=== PATIENT | female | born 1980 | race Caucasian/White ===

== ENCOUNTER → 2016-09-06 | Outpatient (CLI) | payer OTHER ==
--- NOTE | 2016-09-06 09:00 | MRI ---
Procedure: MR BRAIN WITHOUT IV CONTRAST Exam Date: 09/06/2016 12:00 AM CDT Ordering Provider: PHYSICIAN UNKNOWN Clinical Indication: HX OF ANOXIC BRAIN INJURY Comparison: None Technique: Multiplanar, multisequence images of the brain were obtained without administration of intravenous gadolinium based contrast. Findings: No evidence of diffusion restriction to suggest acute infarct. Normal signal characteristics of the brain parenchyma on T2/FLAIR sequences. Mild global parenchymal volume loss is present. There is no extra-axial fluid collection. No acute or chronic intracranial hemorrhage is seen. No evidence of cerebellar tonsillar herniation. Sellar/suprasellar structures are intact. The cervicomedullary junction is within normal limits. Impression: 1. No acute intracranial abnormality. 2. Age advanced global parenchymal volume loss.. Electronically signed by: Paul Jennings MD 09/06/2016 8:59 AM CDT
== END | disposition home or self-care (01) ==
LOC: MRI 08:08
PROVIDERS: ATTEND Psychiatry & Neurology Neurology
DX: G93.1 Anoxic brain damage, not elsewhere classified (principal)

== ENCOUNTER 2017-02-24 18:51 | Emergency (ER) | payer OTHER ==
[2017-02-24 19:19] VITALS: TEMP 98.6
[2017-02-24] MEDS ORDERED: MORPHINE SULFATE INJ 10 MG/ML VIAL IM ONE (19:21)
[2017-02-24] MEDS ORDERED: ORPHENADRINE CITRATE 30 MG/ML AMP IM ONE (19:21)
--- NOTE | 2017-02-24 19:21 | ED.PDOC ---
History of Present Illness - General Chief Complaint: Upper Extremity Injury Stated Complaint: right arm pain Time Seen by Provider: 02/24/17 18:55 Source: patient Exam Limitations: no limitations - History of Present Illness Initial Comments: Arabella Marino 36 y/o female stated that she had been having intermittent sharp shooting pain on her right shoulder for the last 2 years denies history of trauma and she never had medical attention done on her right shoulder but mostly her left shoulder which she had been hurting in the past. Occurred: other - 2 years on and off Pain - Upper Extremity: moderate: Shoulder, right Method of Injury: unknown Improving Factors: rest Worsening Factors: movement Allergies/Adverse Reactions: Allergies Penicillin G Allergy (Verified 02/24/17 19:19) Sulfa Antibiotics Allergy (Verified 02/24/17 19:19) Home Medications: Ambulatory Orders Lisdexamfetamine Dimesylate [Vyvanse] 40 mg PO DAILY 01/18/16 Keimzvxxaylum-Yuro-Qwcdshhpls [Trezix 320.5-30-16 mg] 1 cap PO PRN 02/15/16 Alprazolam [Xanax] 1 mg PO TID 02/15/16 Bupropion HCl [Bupropion HCl Sr] 150 mg PO BID 02/15/16 Butorphanol Tartrate 10 mg EUGENIO Q8HR PRN 02/15/16 Divalproex Sodium ER [Depakote ER] 1,000 mg PO BEDTIME 02/15/16 Donepezil HCl [Aricept] 5 mg PO DAILY 02/15/16 Insulin Glargine [Lantus Solostar] 6 unit SC BEDTIME 02/15/16 Insulin Lispro [Humalog Kwikpen] 100 unit SC PRN 02/15/16 Lisinopril 2.5 mg PO DAILY 02/15/16 Sertraline HCl 150 mg PO DAILY 02/15/16 Suvorexant [Belsomra] 20 mg PO BEDTIME 02/15/16 Topiramate 100 mg PO BID 02/15/16 Trazodone HCl 200 mg PO BEDTIME 02/15/16 Review of Systems - Review of Systems Constitutional: States: no symptoms reported EENTM: States: no symptoms reported Respiratory: States: no symptoms reported Cardiology: States: no symptoms reported Gastrointestinal/Abdominal: States: no symptoms reported Musculoskeletal: States: see HPI Skin: States: no symptoms reported Neurological: States: other - history of anoxic brain damage Past Medical History (General) - Patient Medical History Hx Seizures: Yes Hx Stroke: Yes - 2010 Hx Dementia: No Hx Asthma: No Hx of COPD: No Hx Cardiac Disorders: No Hx Congestive Heart Failure: No Hx Pacemaker: No Hx Hypertension: No Hx Thyroid Disease: No Hx Diabetes: Yes Hx Gastroesophageal Reflux: No Hx Renal Disease: No Hx Cancer: No Hx of HIV: No Hx Hepatitis C: No Hx MRSA: No Surgical History: other - c-sections - Vaccination History Hx Tetanus, Diphtheria Vaccination: No Hx Influenza Vaccination: Yes Hx Pneumococcal Vaccination: No - Social History Hx Tobacco Use: No Hx Chewing Tobacco Use: No Hx Alcohol Use: No Hx Substance Use: No Hx Substance Use Treatment: No Hx Depression: No Hx Physical Abuse: No Hx Emotional Abuse: No Hx Suspected Abuse: No - Female History Hx Last Menstrual Period: 01/07/17 Patient : No Family Medical History - Family History Mother Family History: Unknown Hx Family Diabetes: Yes - multiple family members Physical Exam - Physical Exam General Appearance: Alert, Anxious, No apparent distress Eyes, Ears, Nose, Throat Exam: PERRL/EOMI, normal ENT inspection, pharynx normal Neck: non-tender, full range of motion, supple Cardiovascular/Respiratory: regular rate, rhythm, no M/R/G, normal peripheral pulses Abdominal Exam: non-tender, no organomegaly Back Exam: no CVA tenderness, no vertebral tenderness Elbow/Forearm Exam: bone tenderness - right shoulder, limited ROM - pain right shoulder, pain - rotator cuff area, soft tissue tenderness Hand Exam: normal inspection, no evidence of injury Neuro/Tendon: normal sensation, normal motor functions, responds to pain Mental Status: alert, oriented x 3 Skin Exam: normal color, warm/dry Progress - Progress Progress: 02/24/17 19:51 Last Vital Signs Temp 98.6 F 02/24/17 19:14 Pulse 115 H 02/24/17 19:14 Resp 18 02/24/17 19:14 BP 167/97 02/24/17 19:14 Pulse Ox 98 02/24/17 19:14 - EKG/XRAY/CT XRAY: right shoulder no acute abnormalities Departure - Departure Clinical Impression: Shoulder pain, right Qualifiers: Chronicity: chronic Qualified Code(s): M25.511 - Pain in right shoulder; G89.29 - Other chronic pain Time of Disposition: 20:17 Disposition: Discharge to Home or Self Care Departure Forms: ED Discharge - Pt. Copy, Patient Portal Self Enrollment Instructions: DI for Frozen Shoulder Referrals: TIFFANY TOMAS [Primary Care Provider] - 1-2 Weeks Home Medications: Ambulatory Orders Lisdexamfetamine Dimesylate [Vyvanse] 40 mg PO DAILY 01/18/16 Spfwmqypdkbqp-Pdep-Edvhsabexv [Trezix 320.5-30-16 mg] 1 cap PO PRN 02/15/16 Alprazolam [Xanax] 1 mg PO TID 02/15/16 Bupropion HCl [Bupropion HCl Sr] 150 mg PO BID 02/15/16 Butorphanol Tartrate 10 mg EUGENIO Q8HR PRN 02/15/16 Divalproex Sodium ER [Depakote ER] 1,000 mg PO BEDTIME 02/15/16 Donepezil HCl [Aricept] 5 mg PO DAILY 02/15/16 Insulin Glargine [Lantus Solostar] 6 unit SC BEDTIME 02/15/16 Insulin Lispro [Humalog Kwikpen] 100 unit SC PRN 02/15/16 Lisinopril 2.5 mg PO DAILY 02/15/16 Sertraline HCl 150 mg PO DAILY 02/15/16 Suvorexant [Belsomra] 20 mg PO BEDTIME 02/15/16 Topiramate 100 mg PO BID 02/15/16 Trazodone HCl 200 mg PO BEDTIME 02/15/16 Additional Instructions: Need to follow up with Dr. Sherry elder md for consult with her neurologist Dr. Rios
[2017-02-24] MEDS ORDERED: GABAPENTIN 300 MG CAP PO ONE ×2 (19:28→20:07)
--- NOTE | 2017-02-24 20:05 | RAD ---
EXAM DESCRIPTION: Shoulder,Right 2 or More Views CLINICAL HISTORY: pain COMPARISON: None FINDINGS: 2 views were submitted. No fracture or dislocation is identified. Bone marrow attenuation is unremarkable. No radiopaque foreign body is identified. IMPRESSION: No acute fracture or dislocation. Electronically signed by: Pj Cordero 02/24/2017 8:04 PM [facility]
[2017-02-24] MEDS ORDERED: HYDROCOD/APAP 7.5/325 (ER DISP) #3 TAB PO ONE (20:51)
[2017-02-24 21:06] VITALS: BP 149/89; O2SAT 99
== END 2017-02-24 21:07 | disposition home or self-care (01) ==
LOC: ER 18:51
DX: G89.29 Other chronic pain (principal); M25.511 Pain in right shoulder; E11.9 Type 2 diabetes mellitus without complications; Z86.73 Personal history of transient ischemic attack (TIA), and cerebral infarction without residual deficits; Z79.4 Long term (current) use of insulin; Z79.899 Other long term (current) drug therapy; Z88.0 Allergy status to penicillin; Z88.2 Allergy status to sulfonamides
CPT/HCPCS: 73030; J2270; J2360

== ENCOUNTER 2017-05-30 15:29 | Emergency (ER) | payer OTHER ==
[2017-05-30] MEDS ORDERED: INSULIN, REG.(HUMAN) 100 U/ML VIAL ONE ×2 (15:35→16:48)
[2017-05-30] MEDS ORDERED: NOREPINEPHRINE BITARTRATE 4 MG/4 ML VIAL IVPB ONE ×3 (15:37→17:56)
[2017-05-30] MEDS ORDERED: DEXTROSE 5% 250ML 250 ML ONE ×2 (15:38→17:56)
[2017-05-30] MEDS ORDERED: SODIUM BICARBONATE SYRINGE 50 MEQ/50 ML SYG IV ONE ×2 (16:10→16:50)
--- NOTE | 2017-05-30 16:23 | RAD ---
EXAM DESCRIPTION: Chest,1 View CLINICAL HISTORY: ET tube placement COMPARISON: 18 January 2016 TECHNIQUE: AP portable chest FINDINGS: An endotracheal tube is seen in place with the distal tip just above the carmen. The right chest is clear. Left basilar infiltrate is observed. The heart is within range of normal. Marked gaseous distention of the stomach is observed. Surgical clips are seen in the right upper quadrant. IMPRESSION: 1. An endotracheal tube is seen at the level of the carmen. It should be pulled back at least a centimeter. 2. Left basilar infiltrate is observed. 3. Marked gaseous distention of the stomach is observed. Electronically signed by: Marvin Delcid MD 05/30/2017 4:22 PM [facility]
[2017-05-30] MEDS ORDERED: levoFLOXacin 750MG IV 750 MG in PREMIX BAG 1 BAG IVPB ONE (16:27)
[2017-05-30] MEDS ORDERED: SODIUM CHL 0.9% 250ML (AVIVA) 250 ML IVPB ONE (16:48)
[2017-05-30] MEDS ORDERED: INSULIN, REG.(HUMAN) 250 UNITS in SODIUM CHL 0.9% 250ML (AVIVA) 247.5 ML IVPB SCH ×2 (17:00)
[2017-05-30] MEDS ORDERED: DOPamine PREMIX 250 ML IVPB ONE (17:10)
--- NOTE | 2017-05-30 17:36 | ED.PDOC ---
History of Present Illness - General Chief Complaint: Unresponsive Stated Complaint: unresponsive Time Seen by Provider: 05/30/17 15:53 Source: family, EMS Exam Limitations: clinical condition - History of Present Illness Initial Comments: Patient presents after being found unresponsive at home. A family member called EMS after the patient did not answer the phone and the family member checked on her. The last time the patient was seen at her baseline was yesterday evening. Patient has IDDM with a history of poor compliance and frequent presentations for hypoglycemia. EMS measured the blood sugar at 331. Our first FSBG here was >400. The mother called and said that the patient had not been using recreational drugs. No known recent infections. No other history is available. Timing/Duration: unsure Severity: severe Improving Factors: nothing Worsening Factors: nothing Associated Symptoms: other - unresponsive Allergies/Adverse Reactions: Allergies Penicillin G Allergy (Verified 05/30/17 16:19) Sulfa Antibiotics Allergy (Verified 05/30/17 16:19) Home Medications: Ambulatory Orders Lisdexamfetamine Dimesylate [Vyvanse] 40 mg PO DAILY 01/18/16 Yldcbrjuecqcf-Sewb-Zosxdoftjy [Trezix 320.5-30-16 mg] 1 cap PO PRN 02/15/16 Alprazolam [Xanax] 1 mg PO TID 02/15/16 Bupropion HCl [Bupropion HCl Sr] 150 mg PO BID 02/15/16 Butorphanol Tartrate 10 mg EUGENIO Q8HR PRN 02/15/16 Divalproex Sodium ER [Depakote ER] 1,000 mg PO BEDTIME 02/15/16 Donepezil HCl [Aricept] 5 mg PO DAILY 02/15/16 Insulin Glargine [Lantus Solostar] 6 unit SC BEDTIME 02/15/16 Insulin Lispro [Humalog Kwikpen] 100 unit SC PRN 02/15/16 Lisinopril 2.5 mg PO DAILY 02/15/16 Sertraline HCl 150 mg PO DAILY 02/15/16 Suvorexant [Belsomra] 20 mg PO BEDTIME 02/15/16 Topiramate 100 mg PO BID 02/15/16 Trazodone HCl 200 mg PO BEDTIME 02/15/16 Review of Systems - Review of Systems Unable to Obtain Due To: condition Past Medical History (General) - Patient Medical History Hx Seizures: Yes Hx Stroke: Yes - 2010 Hx Dementia: No Hx Asthma: No Hx of COPD: No Hx Cardiac Disorders: No Hx Congestive Heart Failure: No Hx Pacemaker: No Hx Hypertension: No Hx Thyroid Disease: No Hx Diabetes: Yes Hx Gastroesophageal Reflux: No Hx Renal Disease: No Hx Cancer: No Hx of HIV: No Hx Hepatitis C: No Hx MRSA: No - Vaccination History Hx Tetanus, Diphtheria Vaccination: No Hx Influenza Vaccination: Yes Hx Pneumococcal Vaccination: No - Social History Hx Tobacco Use: No Hx Chewing Tobacco Use: No Hx Alcohol Use: No Hx Substance Use: No Hx Substance Use Treatment: No Hx Depression: No Hx Physical Abuse: No Hx Emotional Abuse: No Hx Suspected Abuse: No - Female History Patient is a Female of Child Bearing Age (10 -59 yrs old): Yes Hx Last Menstrual Period: 01/07/17 Patient : No - Triage Comment ED Triage Comment: unknown lmp Family Medical History - Family History Mother Family History: Unknown Hx Family Diabetes: Yes - multiple family members Physical Exam - Physical Exam General Appearance: Other - unresponsive Eye Exam: bilateral other - pupils constricted and non-reactive Ears, Nose, Throat: normal ENT inspection Neck: other - no LAD Respiratory: lungs clear, normal breath sounds Cardiovascular/Chest: other - weak, thready brachial pulses, pulses barely palpable at the radius and dorsal pedis, lower extremities cool. Gastrointestinal/Abdominal: normal bowel sounds Neurologic: other - GCS 3. No pupillary response. Pupils constricted. No corneal reflex. No response to sternal rub. No voluntary movment. No posturing. No eye movement. No response to pain in the extremities. DTR: 0: Brachioradialis, left, Brachioradialis, right, Patellar, left, Patellar , right Skin Exam: normal color Progress - Progress Progress: 05/30/17 17:41 Patient received Narcan x two amps in the ambulance. Upon arrival at the E.D., patient was successfully intubated. EKG showed NSR with no ST changes nor T wave inversions. ABG showed pH 6.6. Patient received regular human insulin 10 units IV x one, and bolused warmed normal saline as the rectal temperature was 80 F. She received two amps of bicarbonate IV. Patient was put on the ventilator. Lactic acid 2.8. Blood glucose 1389. Potassium 5.3. Patient was started on insulin 10 units IV/hour. Levaphed was started at 5 mcg/kg/min and titrated up to 30 mcg with the best response being a systolic of 59. Dopamine was started at 20 mcg/kg/min and titration continued. wbc 30. Levaquin 750 mg IV x one given. Before transfer the patient started grabbing at the vent and had some leg movement. She was sedated with vecuronium for transfer. See nursing chart for times of medication administration and specific vitals. Patient transferred to [facility] Departure - Departure Clinical Impression: Unresponsiveness, Diabetic ketoacidosis with coma Disposition: Transfer to Hospital Condition: Poor Departure Forms: ED Discharge - Pt. Copy, Patient Portal Self Enrollment Diet: other - as per rampman Activity: other - as per rampman Referrals: TIFFANY TOMAS [Primary Care Provider] - 1-2 Weeks Home Medications: Ambulatory Orders Lisdexamfetamine Dimesylate [Vyvanse] 40 mg PO DAILY 01/18/16 Ctqigeihhrupy-Jtce-Pczevvgexr [Trezix 320.5-30-16 mg] 1 cap PO PRN 02/15/16 Alprazolam [Xanax] 1 mg PO TID 02/15/16 Bupropion HCl [Bupropion HCl Sr] 150 mg PO BID 02/15/16 Butorphanol Tartrate 10 mg EUGENIO Q8HR PRN 02/15/16 Divalproex Sodium ER [Depakote ER] 1,000 mg PO BEDTIME 02/15/16 Donepezil HCl [Aricept] 5 mg PO DAILY 02/15/16 Insulin Glargine [Lantus Solostar] 6 unit SC BEDTIME 02/15/16 Insulin Lispro [Humalog Kwikpen] 100 unit SC PRN 02/15/16 Lisinopril 2.5 mg PO DAILY 02/15/16 Sertraline HCl 150 mg PO DAILY 02/15/16 Suvorexant [Belsomra] 20 mg PO BEDTIME 02/15/16 Topiramate 100 mg PO BID 02/15/16 Trazodone HCl 200 mg PO BEDTIME 02/15/16
[2017-05-30 17:38] VITALS: TEMP 81.5
[2017-05-30] MEDS ORDERED: WATER FOR INJ 10 ML VIAL INJ ONE (17:46)
[2017-05-30] MEDS ORDERED: SODIUM CHLORIDE 0.9% 1000ML 2,000 ML ONE (18:05)
[2017-05-30 18:21] VITALS: BP 64/35; O2SAT 98
== END 2017-05-30 18:05 | disposition short-term general hospital (02) ==
LOC: ER 15:29
DX: E11.11 Type 2 diabetes mellitus with ketoacidosis with coma (principal); Z79.4 Long term (current) use of insulin; Z86.73 Personal history of transient ischemic attack (TIA), and cerebral infarction without residual deficits
CPT/HCPCS: 36415; 36600; 71045; 80053; 81001; 82009; 82550; 82803; 82805; 83605; 85025; 93005; 94002; A4216; J1265; J1956; J7030; J7060

== ENCOUNTER 2018-01-13 17:45 | Inpatient (IN) | payer OTHER ==
[2018-01-13] MEDS ORDERED: SODIUM CHLORIDE 0.9% 1000ML 1,000 ML IVS ONE ×2 (17:55→23:47)
--- NOTE | 2018-01-13 18:00 | ED.PDOC ---
History of Present Illness - General Chief Complaint: General Time Seen by Provider: 01/13/18 17:51 Source: family Exam Limitations: clinical condition - History of Present Illness Initial Comments: Per patient's twin sister, the patient has been "sleeping since " (four days) She has been running blood sugars of at least 400. The sister says that she has been giving the patient her insulin in its normal doses but it hasn't come down. The patient has not been very responsive to her family members. The sister says that the patient has done this before. No other information is available at this time. Timing/Duration: other - four days Severity: moderate Improving Factors: nothing Worsening Factors: nothing Associated Symptoms: other - unable to obtain information from the patient due to clinical condition Allergies/Adverse Reactions: Allergies Penicillin G Allergy (Verified 05/30/17 16:19) Sulfa Antibiotics Allergy (Verified 05/30/17 16:19) Home Medications: Ambulatory Orders Lisdexamfetamine Dimesylate [Vyvanse] 40 mg PO DAILY 01/18/16 Yxerpyjyznwvg-Rmmb-Iliycfyoty [Trezix 320.5-30-16 mg] 1 cap PO PRN 02/15/16 Alprazolam [Xanax] 1 mg PO TID 02/15/16 Bupropion HCl [Bupropion HCl Sr] 150 mg PO BID 02/15/16 Butorphanol Tartrate 10 mg EUGENIO Q8HR PRN 02/15/16 Divalproex Sodium ER [Depakote ER] 1,000 mg PO BEDTIME 02/15/16 Donepezil HCl [Aricept] 5 mg PO DAILY 02/15/16 Insulin Glargine [Lantus Solostar] 6 unit SC BEDTIME 02/15/16 Insulin Lispro [Humalog Kwikpen] 100 unit SC PRN 02/15/16 Lisinopril 2.5 mg PO DAILY 02/15/16 Sertraline HCl 150 mg PO DAILY 02/15/16 Suvorexant [Belsomra] 20 mg PO BEDTIME 02/15/16 Topiramate 100 mg PO BID 02/15/16 Trazodone HCl 200 mg PO BEDTIME 02/15/16 Review of Systems - Review of Systems Constitutional: States: other - as in HPI EENTM: States: no symptoms reported Respiratory: States: no symptoms reported Cardiology: States: no symptoms reported Gastrointestinal/Abdominal: States: nausea Genitourinary: States: no symptoms reported Musculoskeletal: States: no symptoms reported Skin: States: no symptoms reported Neurological: States: see HPI Endocrine: States: see HPI Hematologic/Lymphatic: States: no symptoms reported Past Medical History (General) - Patient Medical History Hx Seizures: Yes Hx Stroke: Yes - 2010 Hx Dementia: No Hx Asthma: No Hx of COPD: No Hx Cardiac Disorders: No Hx Congestive Heart Failure: No Hx Pacemaker: No Hx Hypertension: No Hx Thyroid Disease: No Hx Diabetes: Yes Hx Gastroesophageal Reflux: No Hx Renal Disease: No Hx Cancer: No Hx of HIV: No Hx Hepatitis C: No Hx MRSA: No - Vaccination History Hx Tetanus, Diphtheria Vaccination: No Hx Influenza Vaccination: Yes Hx Pneumococcal Vaccination: No - Social History Hx Tobacco Use: No Hx Chewing Tobacco Use: No Hx Alcohol Use: No Hx Substance Use: No Hx Substance Use Treatment: No Hx Depression: No Hx Physical Abuse: No Hx Emotional Abuse: No Hx Suspected Abuse: No - Female History Hx Last Menstrual Period: 01/07/17 Patient : No Family Medical History - Family History Mother Family History: Unknown Hx Family Diabetes: Yes - multiple family members Physical Exam - Physical Exam General Appearance: Lethargic Eye Exam: bilateral normal Ears, Nose, Throat: normal ENT inspection Neck: non-tender, full range of motion, supple Respiratory: chest non-tender, lungs clear, normal breath sounds Cardiovascular/Chest: normal peripheral pulses, regular rate, rhythm, no edema Gastrointestinal/Abdominal: normal bowel sounds, non tender, soft Back Exam: normal inspection, no CVA tenderness Extremity: normal range of motion, non-tender, normal inspection Neurologic: 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 She had ketones in her urine and a small amount in the serum but the anion gap was normal. Potassium was 3.9 so she was given potassium chloride 20 meq po x one since her veins were poor and IV potassium was not a reasonable option. Potassium increased to 4.7. Glucose decreased to 207 with fluids only and the patient was allowed to eat chicken noodle soup. Her anion gap was normal during the entire stay. Due to her history of serious neurological status during DKA, she was kept for observation, although her mental status and neurological exam returned completely to normal in the E.D. It is unclear what could have been causing her not to respond to her insulin. Upon regaining alertness, she shared that she had been giving herself her own insulin. The benefits of staying in the hospital and the risks of going home tonight were discussed with the patient and it was mutually agreed that she would stay. Laboratory Tests 01/13/18 01/13/18 01/13/18 17:56 18:09 18:09 WBC 8.2 RBC 4.76 Hgb 15.0 Hct 45.4 MCV 95.3 MCH 31.5 H MCHC 33.1 RDW 13.2 Plt Count 227 MPV 8.9 Absolute Neuts (auto) 6.20 Absolute Lymphs (auto) 1.60 Absolute Monos (auto) 0.20 Absolute Eos (auto) 0.00 Absolute Basos (auto) 0.00 Neutrophils % 76.1 Lymphocytes % 20.2 Monocytes % 2.8 Eosinophils % 0.3 L Basophils % 0.6 Sodium 133 L Potassium 3.9 Chloride 99 L Carbon Dioxide 22 Anion Gap 15.9 BUN 22 H Creatinine 1.11 BUN/Creatinine Ratio 19.8 POC Glucose 314 H Random Glucose 354 H Serum Osmolality 283.9 Calcium 10.0 Total Bilirubin 1.1 H AST 19 ALT 15 Alkaline Phosphatase 66 Serum Total Protein 8.1 Albumin 4.7 Globulin 3.4 Albumin/Globulin Ratio 1.4 Lipase Urine Color Urine Appearance Urine pH Ur Specific Alpine Urine Protein Urine Glucose (UA) Urine Ketones Urine Blood Urine Nitrite Urine Bilirubin Urine Urobilinogen Ur Leukocyte Esterase Urine RBC Urine WBC Ur Epithelial Cells Urine Bacteria Serum Ketones Small 01/13/18 01/13/18 01/13/18 18:09 19:12 19:51 WBC RBC Hgb Hct MCV MCH MCHC RDW Plt Count MPV Absolute Neuts (auto) Absolute Lymphs (auto) Absolute Monos (auto) Absolute Eos (auto) Absolute Basos (auto) Neutrophils % Lymphocytes % Monocytes % Eosinophils % Basophils % Sodium Potassium Chloride Carbon Dioxide Anion Gap BUN Creatinine BUN/Creatinine Ratio POC Glucose 234 H Random Glucose Serum Osmolality Calcium Total Bilirubin AST ALT Alkaline Phosphatase Serum Total Protein Albumin Globulin Albumin/Globulin Ratio Lipase 19 L Urine Color Yellow Urine Appearance Clear Urine pH 5.5 Ur Specific Alpine 1.015 Urine Protein Negative Urine Glucose (UA) 500 H Urine Ketones >=160 Urine Blood Negative Urine Nitrite Negative Urine Bilirubin Small H Urine Urobilinogen 0.2 Ur Leukocyte Esterase Negative Urine RBC 1-3 Urine WBC 0 Ur Epithelial Cells 3-5 Urine Bacteria 0 Serum Ketones 01/13/18 20:12 WBC RBC Hgb Hct MCV MCH MCHC RDW Plt Count MPV Absolute Neuts (auto) Absolute Lymphs (auto) Absolute Monos (auto) Absolute Eos (auto) Absolute Basos (auto) Neutrophils % Lymphocytes % Monocytes % Eosinophils % Basophils % Sodium 133 L Potassium 4.7 Chloride 103 Carbon Dioxide 20 L Anion Gap 14.7 BUN 20 H Creatinine 0.82 BUN/Creatinine Ratio 24.4 H POC Glucose Random Glucose 207 H D Serum Osmolality 275.0 Calcium 9.1 Total Bilirubin AST ALT Alkaline Phosphatase Serum Total Protein Albumin Globulin Albumin/Globulin Ratio Lipase Urine Color Urine Appearance Urine pH Ur Specific [place]pine Urine Protein Urine Glucose (UA) Urine Ketones Urine Blood Urine Nitrite Urine Bilirubin Urine Urobilinogen Ur Leukocyte Esterase Urine RBC Urine WBC Ur Epithelial Cells Urine Bacteria Serum Ketones Small 01/13/18 22:01 Recheck of neurological exam: alert and oriented x 3. CNII-XII intact grossly. No paresthesias. Full AROM in all extremities. Full sensation in all extremities. Departure - Departure Clinical Impression: Diabetic ketoacidosis Disposition: Admit Patient Condition: Fair Departure Forms: ED Discharge - Pt. Copy, Patient Portal Self Enrollment Diet: diabetic diet Activity: increase activity as tolerated Referrals: TIFFANY TOMAS [Primary Care Provider] - 1-2 Weeks Home Medications: Ambulatory Orders Lisdexamfetamine Dimesylate [Vyvanse] 40 mg PO DAILY 01/18/16 Zjvxjvdpzqrph-Tryw-Tkzjaqwogx [Trezix 320.5-30-16 mg] 1 cap PO PRN 02/15/16 Alprazolam [Xanax] 1 mg PO TID 02/15/16 Bupropion HCl [Bupropion HCl Sr] 150 mg PO BID 02/15/16 Butorphanol Tartrate 10 mg EUGENIO Q8HR PRN 02/15/16 Divalproex Sodium ER [Depakote ER] 1,000 mg PO BEDTIME 02/15/16 Donepezil HCl [Aricept] 5 mg PO DAILY 02/15/16 Insulin Glargine [Lantus Solostar] 6 unit SC BEDTIME 02/15/16 Insulin Lispro [Humalog Kwikpen] 100 unit SC PRN 02/15/16 Lisinopril 2.5 mg PO DAILY 02/15/16 Sertraline HCl 150 mg PO DAILY 02/15/16 Suvorexant [Belsomra] 20 mg PO BEDTIME 02/15/16 Topiramate 100 mg PO BID 02/15/16 Trazodone HCl 200 mg PO BEDTIME 02/15/16
[2018-01-13] MEDS ORDERED: KCL 20MEQ/WATER FOR INJ 100ML 20 MEQ in PREMIX BAG 1 BAG IVPB ONE (19:12)
[2018-01-13] MEDS ORDERED: POTASSIUM CHLORIDE 20 MEQ TAB PO ONE (19:24)
[2018-01-13] MEDS ORDERED: SODIUM CHLORIDE 0.9% 500ML 500 ML IVS ONE (20:12)
--- NOTE | 2018-01-13 22:18 | HP ---
SUPERVISING PHYSICIAN: Antionette Robbins MD CHIEF COMPLAINT: High blood sugars, nausea and vomiting. HISTORY OF PRESENT ILLNESS: Ms. Marino is a 37-year-old, female patient who was brought to the Emergency Room on 01/13/18 by her twin sister. Her sister noted the patient had been sleeping since , well over four days, and her sugars have been running well over 400. The sister noted that she had been giving the patient insulin in small doses, but her sugars had not come down. The patient does utilize a CTM and is on a sliding scale and is on Levemir normally at home. The patient had been noted to be not responsive by her family members with the family noting she had done it in the past. Other than that, the patient was dropped off by the sister after the sister gave her 11 units of subcutaneous insulin. In the Emergency Room, the patient was found to be arousable, but drowsy. Her labs initially showed a blood sugar of 314. Serum ketones were small as well as positive ketones in her urine. Chemistries a slightly elevated BUN of 22, creatinine 1.1, potassium 3.9. ABGs were not completed in the Emergency Room, but the Emergency Room physician, Dr. Simmons , felt the patient was not truly in diabetic ketoacidosis state given she had anion gap of 15.9 and glucose 354 on recheck. She was given 1.5 liters of normal saline and observed with intent of discharging home, however, the patient had little change in her symptomatology and Dr. Simmons felt the patient needed be placed in observation at least or admitted to the hospital for continued treatment of poorly controlled diabetes. The patient is now going to be admitted to the hospital for treatment of mild diabetic ketoacidosis. She was admitted in stable condition. PAST MEDICAL HISTORY: 1. Type 1 diabetes mellitus, diagnosed at age 5, on sliding scale and Levemir utilizing CTM. 2. History of anoxic brain injury in 2010 and 2018 as result of diabetic coma. 3. Migraines. 4. Anxiety. 5. Insomnia. 6. Seizure disorder secondary to anoxic brain injury. PAST SURGICAL HISTORY: 1. Cholecystectomy. 2. Carpal tunnel release. 3. x1. 4. Two rectal abscesses surgically excised. OUTPATIENT MEDICATIONS: Awaiting verification at time of admission. ALLERGIES: PENICILLIN, SULFA. CODE STATUS: Full code. FAMILY HISTORY: Noncontributory. SOCIAL HISTORY: The patient is . She has one child. She denies any tobacco, alcohol or illicit drug use. She lives in [place]. She is checked on by her sister. She is disabled secondary to diabetes and anoxic brain injury. REVIEW OF SYSTEMS: CONSTITUTIONAL: As noted in history of present illness, generalized weakness, lethargy. No reported weight change, but ongoing fatigue. HEENT: Denies nasal congestion, ear pain, earaches, sore throats. RESPIRATORY: Denies cough, wheezing, shortness of breath. CARDIOVASCULAR: Denies chest pain, palpitations, tachycardia or syncopal episodes. GASTROINTESTINAL: Denies abdominal pain, but noted she had been having some nausea with some vomiting and diarrhea, but denies constipation. ENDOCRINE: As per history of present illness. INTEGUMENT: Denies rashes, lesions. NEUROLOGIC: No reported headache. She does have a history of migraines and history of anoxic brain injury, but no reported focal neurologic deficits other than slow verbal response, which is normal for the patient. She denies any recent seizure activity, ataxia or other focal deficits. PHYSICAL EXAMINATION: VITAL SIGNS: Temperature 97.8. Pulse 79. Blood pressure 104/76. Respirations 16. Saturation 100% on room air at rest. Admission weight 63.5 kg. GENERAL: Ms. Marino is a 37-year-old female patient that on admission to the Medical/Surgical Floor appeared to be in no acute distress, resting comfortably and alert. HEENT: Tympanic membranes clear bilaterally. Oropharynx is pink with notable dry mucous membranes. Oropharynx clear. NECK: Supple, nontender with full range of motion. No jugular venous distention noted. RESPIRATORY: Lungs clear to auscultation bilaterally without any rhonchi, wheezes, or rales. CARDIOVASCULAR: Regular rate and rhythm without any appreciable murmurs, gallops, or rubs. ABDOMEN: Soft, nontender. Positive bowel sounds. EXTREMITIES: There is no cyanosis, clubbing or edema. She does have very limited range of motion to her right shoulder as she reports it is chronic and a frozen joint. She denies any trauma. SKIN: Warm, dry and pink. NEUROLOGIC: The patient is alert and oriented times three. She does have notably slowed speech, but no slurring and this is noted to be her normal baseline status. Cranial nerves II-XII are grossly intact. Facial features are symmetrical. Extraocular movements are within normal limits. There is no nystagmus noted. LABORATORY: CBC showed white count 8,200, platelet count 227,000, differential without left shift. Blood gas analysis pending at time of admission. Chemistries initially showed sodium 133, potassium 3.9, chloride 99, anion gap 15.9, BUN 22, creatinine 1.1. Initial blood sugar 354, calcium 10, magnesium and phosphorous pending. Bilirubin slightly elevated at 1. All other liver functions were within normal limits. Lipase was normal at 19. TSH pending. Hemoglobin A1c pending. Urine HCG negative. Urine drug screen was pending. Urine glucose 500 with greater than 150 ketones, small amount of bilirubin. Microscopic was within normal limits. Initial serum ketone was small on admission and after 1.5 liters of fluids, was unchanged at small. RADIOLOGY: Chest x-ray pending at time of admission. ASSESSMENT: 1. Type 1 diabetes mellitus, insulin dependent, with complications secondary to mild diabetic ketoacidosis, followed by Dr. 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 2. History of seizure disorder secondary to anoxic brain injury. 3. History of migraines. PLAN: The patient will be admitted to Medical/Surgical Floor for ongoing treatment of diabetic ketoacidosis. I will draw an ABG on admission as soon as possible. She was only given 1.5 liters of fluids with normal saline in the Emergency Room. This will be followed with an additional liter and address according to her output and her repeat laboratory studies. We will do a BMP q.4h. She does have a CTM G5 in place that will be utilized for her q.1h. glucoses when she is started on an insulin drip. I anticipate insulin drip for the next 8 to 12 hours until she can have adequate p.o. intake and can transition to subcutaneous insulin. We will continue with fluids as needed and address her electrolytes and treat according to labs. We will anticipate her length of stay to be at least 2 to 3 days until she is clinically stable. Until discharge, we will continue to monitor the patient closely and treat appropriately. Once discharged, she will need to followup closely with her primary care provider, Dr. Powell. #[id number] [facility]
[2018-01-13] MEDS ORDERED: ACETAMINOPHEN 325 MG TAB PO PRN (22:28)
[2018-01-13] MEDS ORDERED: ONDANSETRON INJ 4 MG/2 ML VIAL IV PRN (22:28)
[2018-01-13] MEDS ORDERED: SODIUM CHLORIDE 0.9% (FLUSH) 10 ML SYG IV PRN (22:28)
[2018-01-13] MEDS ORDERED: IV SET AND CAP CHANGE INJ INJ SCH (22:30)
[2018-01-13] MEDS ORDERED: INSULIN, REG.(HUMAN) 250 UNITS in SODIUM CHL 0.9% 250ML (AVIVA) 247.5 ML IVPB SCH ×2 (22:30)
--- NOTE | 2018-01-13 23:06 | RAD ---
PROCEDURE: XR Chest, 2 Views CLINICAL INDICATION: The patient is 37 years old and is Female; DKA TECHNIQUE: Frontal and lateral views of the chest. COMPARISON: Comparison is made to the prior study dated 06/17/2017 FINDINGS: LUNGS: Mildly prominent fine diffuse interstitial markings remain. The lungs are free of focal consolidation. Pulmonary vascularity is normal. PLEURAL SPACE: There is NO pneumothorax. There are no pleural effusions noted. HEART: The heart size is normal MEDIASTINUM: The mediastinal contour is unremarkable. BONES/JOINTS: There are degenerative changes of the spine identified. No acute abnormality. UPPER ABDOMEN: There are postsurgical changes from prior cholecystectomy in the gallbladder fossa. IMPRESSION: 1. Mildly prominent fine diffuse interstitial markings remain. 2. The lungs are free of focal consolidation. Electronically signed by: Joon Olivo MD 01/13/2018 11:04 PM CDT
[2018-01-13] MEDS ORDERED: INSULIN, REG.(HUMAN) 100 U/ML VIAL ONE (23:09)
[2018-01-13] MEDS ORDERED: KCL 20 MEQ/NS 1,000 ML IVS ONE (23:09)
[2018-01-13] MEDS ORDERED: SODIUM CHL 0.9% 250ML (AVIVA) 250 ML IVPB ONE (23:09)
[2018-01-13] MEDS ORDERED: SODIUM CHLORIDE 0.9% 1000ML 1,000 ML ONE (23:33)
[2018-01-14] MEDS ORDERED: MAGNESIUM SULFATE PREMIX 2GM 2 GM in PREMIX BAG 1 BAG IVPB ONE (01:09)
[2018-01-14] MEDS ORDERED: MAGNESIUM SULFATE PREMIX 2GM 50 ML IVPB ONE (01:30)
[2018-01-14] MEDS: KCL 20 MEQ/NS 1,000 ML IVS PRN ×2 (02:50→07:02)
[2018-01-14] MEDS ORDERED: KCL 20 MEQ/NS 1,000 ML IVS ONE (05:28)
[2018-01-14] MEDS ORDERED: KCL 20MEQ/D5 1/2NS 1,000 ML IVS PRN (07:13)
[2018-01-14 08:29] VITALS: TEMP 97.8
[2018-01-14] MEDS ORDERED: diazePAM 5 MG TAB PO SCH (09:00)
[2018-01-14] MEDS ORDERED: DIVALPROEX SODIUM ER 250 MG TAB PO SCH ×2 (09:00→21:00)
[2018-01-14] MEDS ORDERED: SERTRALINE HCL 50 MG TAB PO SCH (09:00)
[2018-01-14] MEDS ORDERED: PREGABALIN 25 MG CAP PO SCH (09:00)
[2018-01-14] MEDS ORDERED: MEMANTINE 10 MG TAB PO SCH (09:00)
[2018-01-14] MEDS ORDERED: VILAZODONE HCL 40 MG PO SCH (09:00)
[2018-01-14] MEDS ORDERED: TOPIRAMATE 25 MG TAB PO SCH (09:00)
[2018-01-14] MEDS ORDERED: DONEPEZIL HCL 5 MG TAB PO SCH (09:00)
[2018-01-14] MEDS ORDERED: LISDEXAMFETAMINE DIMESYLATE 40 MG PO SCH (09:00)
[2018-01-14] MEDS ORDERED: INSULIN DETEMIR 100 UNITS/ML PEN SUBCU ONE (10:26)
[2018-01-14] MEDS ORDERED: DEXTROSE 50% 25 GM/50 ML SYG IV PRN (10:28)
[2018-01-14] MEDS ORDERED: GLUCAGON INJ 1 MG VIAL SUBCU PRN (10:28)
[2018-01-14 10:51] VITALS: BP 97/71; O2SAT 97
[2018-01-14] MEDS ORDERED: INSULIN LISPRO 100 UNITS/ML PEN SUBCU SCH (11:30)
[2018-01-14] MEDS ORDERED: KETOROLAC TROMETHAMINE INJ 30 MG/ML VIAL IV ONE (11:51)
[2018-01-14] MEDS ORDERED: KCL 20MEQ/0.45% NS 1,000 ML IVS PRN (11:52)
[2018-01-14] MEDS ORDERED: LISINOPRIL 5 MG TAB PO SCH (21:00)
[2018-01-14] MEDS ORDERED: SUVOREXANT 20 MG PO SCH (21:00)
[2018-01-14] MEDS ORDERED: traZODone HCL 100 MG TAB PO SCH (21:00)
--- NOTE | 2018-01-19 16:26 | DS ---
SUPERVISING PHYSICIAN: Walter Robbins MD ADMISSION DIAGNOSES: 1. Type 1 diabetes mellitus, insulin dependent, with complications secondary to mild diabetic ketoacidosis, followed by Dr. 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 2. History of seizure disorder secondary to anoxic brain injury. 3. History of migraines. DISCHARGE DIAGNOSES: 1. Mild diabetic ketoacidosis, responding to fluids with the patient on a CTM. 2. History of seizure disorder secondary to anoxic brain injury secondary to diabetes mellitus complications. 3. History of migraines. REASON FOR HOSPITALIZATION: : Ms. Marino is a 37-year-old, female patient who was brought to the Emergency Room on 01/13/18 by her twin sister. Her sister noted the patient had been sleeping since before admission for well over four days and her sugars had been running over 400. The sister noted that she had been giving the patient insulin in small doses, but her sugars had not come down. The patient does utilize a CTM and is on a sliding scale and is on Levemir normally at home. The patient had also noted to be not responsive by her family members with the family noting she had done this in the past. Other than that, the patient was dropped off by the sister after the sister gave her 11 units of subcutaneous insulin. In the Emergency Room, the patient was found to be arousable but drowsy. Her labs initially showed a blood sugar of 314. Serum ketones were small as well as positive ketones in her urine. Chemistries with a slightly elevated BUN of 22, creatinine 1.1, potassium 3.9. ABGs were not completed in the Emergency Room, but the Emergency Room physician, Dr. Simmons, felt the patient was not truly in diabetic ketoacidosis given that she had anion gap of 15.9 and glucose 354 on recheck. She was given 1.5 liters of fluid in the Emergency Room and observed with intent of discharging home, however, the patient had little change in her symptomatology and Dr. Simmons felt the patient needed be placed in observation for continued treatment of poorly controlled diabetes. The patient was admitted to the hospital for treatment of diabetic ketoacidosis. She was admitted in stable condition. LABORATORY: White count on admission was 8,200, discharge was 8,000. Hemoglobin and hematocrit were stable and at discharge 12.6 and 37.6 respectively with platelet count 240,000. Differential was without a left shift. Blood gas analysis on admission to the medical/surgical floor showed a pH of 7.36 with PC02 of 35, P02 of 85 and bicarb of 19 with a base excess of negative 5.2, saturation 97% on room air. Chemistries on admission showed a sodium of 133 with potassium 3.9, initial blood sugar of 354 with a corrected sodium of 140. Total bilirubin was 1.0 with liver functions all essentially within normal limits. Lipase normal at 19. TSH normal at 0.52. After initiation of DKA protocol and sliding insulin scale and treatment with fluids, the patient showed improvement, had normalized her electrolytes, was no longer producing any ketones and it was felt to out of DKA and well enough to be discharged home. Her blood sugars have been running between 82 and 176 prior to discharge on subcu insulin. MICROBIOLOGY: No microbiology specimens were submitted. Urinalysis showed negative beta HCG. Initial urine on admission showed a glucose of 500, greater than 160 of ketones, small amount of bilirubin. Serum ketones initially on admission were small and on the morning of discharge had normalized to negative. Urine drug screen was showing positive for benzodiazepines. RADIOLOGY: Chest x-ray in the Emergency Room and per radiology interpretation showed mild prominent defined diffuse interstitial markings. There were no consolidations noted. EKG on admission to the medical/surgical floor showed normal sinus with no acute changes. HOSPITAL COURSE: PLAN: Ms. Marino had responded well to treatment for DKA, sliding scale and was felt on the morning of discharge to be clinically stable enough to continue with outpatient management. Ms. Marino was discharged on 01/14/18 with instructions to followup with her engraver wood in the following week who is Dr. Estrada. She is also to followup with Dr. Powell as needed. She is to resume her home medications as instructed. She was encouraged to push fluids to prevent dehydration and return to the hospital for any concerning symptoms. No new medications were prescribed at discharge. She was discharged in renita condition and improved. #[id number] [facility]
== END 2018-01-14 14:18 | disposition home or self-care (01) | DRG 639 ==
LOC: ER 17:45 → OBSVTOIN 22:18 → MS 22:18
PROVIDERS: ADMIT Nurse Practitioner Family; ATTEND Nurse Practitioner Family
DX: E10.10 Type 1 diabetes mellitus with ketoacidosis without coma (principal); G40.909 Epilepsy, unspecified, not intractable, without status epilepticus; G43.909 Migraine, unspecified, not intractable, without status migrainosus; Z87.820 Personal history of traumatic brain injury; Z79.4 Long term (current) use of insulin; F41.9 Anxiety disorder, unspecified; G47.00 Insomnia, unspecified; Z88.0 Allergy status to penicillin; Z88.2 Allergy status to sulfonamides

== ENCOUNTER → 2019-08-26 | Outpatient (CLI) | payer MEDICARE | LOC: LAB.O 09:42 | PROVIDERS: ATTEND Internal Medicine | DX: E10.10 Type 1 diabetes mellitus with ketoacidosis without coma (principal); E78.2 Mixed hyperlipidemia; E55.9 Vitamin D deficiency, unspecified ==